=== PATIENT | female | born 1990 | race African-American/Black ===

== ENCOUNTER 2017-09-09 16:05 | Emergency (ER) | payer MEDICAID, OTHER ==
[~2017-09-09] VITALS: Ht 167.6 cm; Wt 81.6 kg
[~2017-09-09 16:05] MED LIST: ALBUTEROL SULF8.5 GM INH; IBUPROFEN600 MG ORAL; NKM; TRAMADOL HCL50 MG ORAL
[2017-09-09] MEDS ORDERED: Albuterol ud Inhalation HHN ONE (16:45)
--- NOTE | 2017-09-09 17:24 | Emergency Room Report ---
History of Present Illness General Chief Complaint: General Complaint Present Illness HPI 27-year-old female presents to the emergency department complaining of cough, body aches, nasal congestion and exacerbation of her asthma x3 days in addition to the swelling, erythema, tenderness to localized area of the right buttock with 10 out of 10 in severity pain x3 days as well. Patient reports chills she denies fevers. Denies recent no contacts or recent travel. Denies neck pain, stiffness or photophobia. Denies CP, Palpitations, LOC, AMS, dizziness, Changes in Vision, Sensation, paresthesias, or a sudden severe headache. Pt. states she has been out of her inhaler for "a long time". Allergies: Coded Allergies: No Known Allergies (Unverified , 02/23/16) Patient History Past Medical History: see triage record Past Surgical History: none Pertinent Family History: none Reviewed Nursing Documentation: PMH: Agreed, PSxH: Agreed Nursing Documentation-PMH Hx Asthma: Yes Review of Systems All Other Systems: negative except mentioned in HPI Physical Exam Vital Signs Date Time Temp Pulse Resp B/P (MAP) Pulse Ox O2 Delivery O2 Flow Rate FiO2 09/09/17 16:13 97.9 94 20 110/76 99 Room Air 09/09/17 17:13 21 Sp02 EP Interpretation: reviewed, normal General Appearance: no apparent distress, alert, GCS 15, non-toxic Head: normocephalic, atraumatic Eyes: bilateral eye normal inspection, bilateral eye PERRL ENT: hearing grossly normal, normal pharynx, normal voice, TMs + canals normal , uvula midline, moist mucus membranes Neck: full range of motion, no meningismus, no bony tend Respiratory: chest non-tender, speaking full sentences, wheezing Cardiovascular #1: regular rate, rhythm, normal capillary refill Rectal: deferred Musculoskeletal: back normal, gait/station normal, normal range of motion, non- tender Neurologic: alert, oriented x3, responsive, motor strength/tone normal, sensory intact, normal gait, speech normal Skin: normal color, no rash, warm/dry, well hydrated, other - 2cm fluctuant abscess on the medial aspect of the right buttock. Procedures Incision and Drainage Incision and Drainage : Consent: Verbal Site: right buttock Blade Size: 11 I & D Procedure: betadine prep, sterile drapes applied, sterile dressing applied Wound Location: other - right buttock Wound's Depth, Shape: superficial Wound Length (cm): 1 Wound Explored: contaminated - purulent drainage is expressed Anesthesia: 1% Lidocaine Volume Anesthetic (ccs): 2 Splint Applied?: No Sling Applied?: No Patient Tolerated: Well Complications: None Medical Decision Making PA Attestation Dr. Orellana is my supervising Physician whom patient management has been discussed with. Diagnostic Impression: Primary Impression: Abscess Additional Impression: Bronchitis ER Course 27-year-old female presents to the emergency department complaining of cough, body aches, nasal congestion and exacerbation of her asthma x3 days in addition to the swelling, erythema, tenderness to localized area of the right buttock with 10 out of 10 in severity pain x3 days as well. Patient reports chills she denies fevers. Denies recent no contacts or recent travel. Denies neck pain, stiffness or photophobia. Denies CP, Palpitations, LOC, AMS, dizziness, Changes in Vision, Sensation, paresthesias, or a sudden severe headache. Pt. states she has been out of her inhaler for "a long time". Ddx considered but are not limited to URI, pneumonia, PE, strep pharyngitis, meningitis.cellulitis, abscess, cystic acne, necrotizing fasciitis, insect bite. Vital signs: Pt.is afebrile VS are WNL H&PE are most consistent with bronchitis and abscess of the right buttock. ORDERS: none required at this time, the diagnosis is clinical ED INTERVENTIONS: -Albuterol Nebs --I & D. DISCHARGE: At this time pt. is stable for d/c to home. Will provide printed patient care instructions, and any necessary prescriptions. Care plan and follow up instructions have been discussed with the patient prior to discharge. Last Vital Signs Date Time Temp Pulse Resp B/P (MAP) Pulse Ox O2 Delivery O2 Flow Rate FiO2 09/09/17 17:15 77 18 99 Room Air 21 09/09/17 16:13 97.9 110/76 Disposition: HOME, SELF-CARE Condition: Stable Scripts Codeine/Promethazine Hcl* (PROMETHAZINE-CODEINE SYRUP*) 118 Ml Syrup 5 ML ORAL Q6H Y for For Cough, #120 ML 0 Refills Prov: Mindi Hathaway P.A. 09/09/17 Albuterol Sulfate* (ALBUTEROL SULFATE MDI*) 8.5 Gm Hfa.aer.ad 2 PUFF INH Q3H, #1 INH 0 Refills Prov: Mindi Hathaway 09/09/17 Bacitracin/Polymyxin B Sulfate (BACITRACIN-POLYMYXIN OINTMENT) 28.35 Gm Oint...g. 1 APPLIC TP BID, #28.3 GM Prov: Mindi Hathaway 09/09/17 Trimethoprim/Sulfamethoxazole 160/800* (BACTRIM DS TABLET*) 1 Each Tablet 1 TAB ORAL TWICE A DAY for 7 Days, #14 TAB Prov: Mindi Hathaway 09/09/17 Cephalexin* (KEFLEX*) 500 Mg Capsule 500 MG ORAL EVERY 12 HOURS for 7 Days, #14 CAP 0 Refills Prov: Mindi Hathaway 09/09/17 Patient Instructions: Abscess, [id number], Acute Bronchitis, [id number] Additional Instructions: Take medications as directed. Follow up with a Primary Care Provider in 3-5 days, even if your symptoms have resolved. --Please review list of primary care clinics, if you do not already have a primary care provider Return sooner to ED if new symptoms occur, or current symptoms become worse. Do not drink alcohol, drive, or operate heavy machinery while taking Cough Syrup as this may cause drowsiness. - Please note that this Emergency Department Report was dictated using [employer] caller technology software, occasionally this can lead to erroneous entry secondary to interpretation by the dictation equipment. Mindi Hathaway Sep 09, 2017 17:24
[2017-09-09] MEDS ORDERED: CEPHALEXIN500 MG ORAL (17:25)
[2017-09-09] MEDS ORDERED: PROMETHAZINE-C118 M1 ORAL (17:25)
[2017-09-09] MEDS ORDERED: ALBUTEROL SULF8.5 GM INH (17:25)
[2017-09-09] MEDS ORDERED: BACTRIM DS TAB1 EAC1 ORAL (17:25)
[2017-09-09] MEDS ORDERED: BACITRACIN-P28.35 GM TP (17:25)
[2017-09-09 17:40] VITALS: BP 124/70
== END 2017-09-09 18:00 | disposition home or self-care (01) ==
LOC: EMR 17:50
DX: L02.31 Cutaneous abscess of buttock (principal); J40 Bronchitis, not specified as acute or chronic; R09.81 Nasal congestion; J45.901 Unspecified asthma with (acute) exacerbation
CPT/HCPCS: 10060; 94640; 94664; 99284

== ENCOUNTER 2017-10-07 07:41 | Emergency (ER) | payer MEDICAID, OTHER ==
[~2017-10-07] VITALS: Ht 167.6 cm; Wt 80.7 kg
[~2017-10-07 07:41] MED LIST changes: +BACITRACIN-P28.35 GM TP; +BACTRIM DS TAB1 EAC1 ORAL; +CEPHALEXIN500 MG ORAL; +PROMETHAZINE-C118 M1 ORAL
[2017-10-07] MEDS ORDERED: Albuterol ud Inhalation HHN ONE (08:00)
[2017-10-07] MEDS ORDERED: Ipratropium 0.02% Inh Soln 2.5ml UD HHN ONE (08:00)
--- NOTE | 2017-10-07 08:00 | Emergency Room Report ---
History of Present Illness General Chief Complaint: Asthma Source: Patient Present Illness HPI 27-year-old female presents ED for evaluation. Since last 2 days she's been drinking chest tightness and wheezing. Has history of asthma. Denies any chest pain. Denies any cough. Denies smoking or drug use. Denies sick contacts or recent travel. No other aggravating relieving factors. Denies any other associated symptom Allergies: Coded Allergies: No Known Allergies (Unverified , 02/23/16) Patient History Past Medical History: asthma Past Surgical History: none Pertinent Family History: none Social History: Denies: smoking, alcohol use, drug use Last Menstrual Period: 10/03/17 Now: No Immunizations: UTD Reviewed Nursing Documentation: PMH: Agreed, PSxH: Agreed Nursing Documentation-PMH Past Medical History: No History, Except For Hx Asthma: Yes Review of Systems All Other Systems: negative except mentioned in HPI Physical Exam Vital Signs Date Time Temp Pulse Resp B/P (MAP) Pulse Ox O2 Delivery O2 Flow Rate FiO2 10/07/17 07:43 97.7 88 20 114/64 100 Room Air Sp02 EP Interpretation: reviewed, normal General Appearance: no apparent distress, alert, GCS 15, non-toxic Head: normocephalic Eyes: bilateral eye normal inspection, bilateral eye PERRL ENT: hearing grossly normal, normal pharynx, no angioedema, normal voice Neck: normal inspection Respiratory: wheezing Cardiovascular #1: regular rate, rhythm, no edema Gastrointestinal: normal bowel sounds, non tender, soft, non-distended, no guarding, no rebound Rectal: deferred Genitourinary: no CVA tenderness Musculoskeletal: normal inspection Neurologic: alert, oriented x3, responsive, motor strength/tone normal, sensory intact, speech normal Psychiatric: normal inspection Skin: normal inspection Lymphatic: normal inspection Medical Decision Making Diagnostic Impression: Primary Impression: Asthma attack Qualified Codes: J45.901 - Unspecified asthma with (acute) exacerbation ER Course Hospital Course 27-year-old female presents to ED complaining of cough, wheezing Differential diagnoses include: URI, bronchitis, asthma/COPD, pneumonia Clinical course Patient placed on stretcher. After initial history, physical exam reveals a female in no acute distress. Bilateral TM unremarkable. No pharyngeal erythema. No tonsillar exudates. No lymphadenopathy. Mild wheezing noted on exam, no signs of respiratory distress or retractions. Patient given Prednisone and albuterol treatment in ED with symptoms improved. Reassurance given Diagnosis - asthma attack Stable and discharged home with prescriptions for albuterol inhaler, prednisone. Instructed to followup with PMD. Return to ED if symptoms recur or worsen Last Vital Signs Date Time Temp Pulse Resp B/P (MAP) Pulse Ox O2 Delivery O2 Flow Rate FiO2 10/07/17 07:43 97.7 88 20 114/64 100 Room Air Status: improved Disposition: HOME, SELF-CARE Condition: Stable Scripts Prednisone* (PREDNISONE*) 20 Mg Tablet 40 MG ORAL DAILY, #10 TAB Prov: LEISA BARRIOS M.D. 10/07/17 Albuterol Sulfate* (ALBUTEROL SULFATE MDI*) 8.5 Gm Hfa.aer.ad 2 PUFF INH Q6H, #1 EA 0 Refills Prov: LEISA BARRIOS M.D. 10/07/17 LEISA BARRIOS M.D. Oct 07, 2017 08:00
[2017-10-07] MEDS ORDERED: PREDNISONE20 MG ORAL (08:58)
[2017-10-07] MEDS ORDERED: ALBUTEROL SULF8.5 GM INH (08:58)
[2017-10-07 08:59] VITALS: BP 114/64
== END 2017-10-07 08:59 | disposition home or self-care (01) ==
LOC: EMR 08:06
DX: J45.909 Unspecified asthma, uncomplicated (principal)
CPT/HCPCS: 94640; 94664; 99284; J7512

== ENCOUNTER 2017-11-01 18:41 | Emergency (ER) | payer MEDICAID ==
[~2017-11-01] VITALS: Ht 167.6 cm; Wt 81.6 kg
[~2017-11-01 18:41] MED LIST changes: +PREDNISONE20 MG ORAL
--- NOTE | 2017-11-01 18:59 | Emergency Room Report ---
History of Present Illness General Chief Complaint: General Complaint Source: Patient Present Illness HPI 27 yo female patient presents to ER complaining of cough, congestion and flu like symptoms for 3 days. Patient reports cough with sputum and subjective fever. Patient reports hx of asthma; states cough is worse at night. Patient reports she is out of medication; states appointment with primary care provider is next month on November 12, 2017. Patient reports chest pain began after coughing symptoms. Patient also complains of diarrhea x1 day; reports its watery.. Reports drinking lots of fluids during this time; denies lack of appetite. Patient denies recent travel. Denies blood in stool. Patient presents to ER with daughter for similar symptoms. Patient denies nausea, vomiting, vision changes, abdominal pain, dysuria, hematuria, rash. Allergies: Coded Allergies: No Known Allergies (Unverified , 02/23/16) Patient History Past Medical History: see triage record Last Menstrual Period: 10/04/17 Reviewed Nursing Documentation: PMH: Agreed, PSxH: Agreed Nursing Documentation-PMH Past Medical History: No History, Except For Hx Asthma: Yes Review of Systems All Other Systems: negative except mentioned in HPI Physical Exam Vital Signs Date Time Temp Pulse Resp B/P (MAP) Pulse Ox O2 Delivery O2 Flow Rate FiO2 11/01/17 18:54 99.1 92 18 110/72 96 Room Air 99.1 Sp02 EP Interpretation: reviewed, normal General Appearance: well appearing, no apparent distress, alert, GCS 15, non- toxic Head: normocephalic, atraumatic Eyes: bilateral eye normal inspection, bilateral eye PERRL, bilateral eye EOMI ENT: hearing grossly normal, normal pharynx, normal voice, TMs + canals normal , uvula midline, moist mucus membranes, nasal congestion Respiratory: no accessory muscle use, speaking full sentences, wheezing, other - chest tender to palpation; no crackles on auscultation Cardiovascular #1: regular rate, rhythm Gastrointestinal: normal bowel sounds, non tender, soft, no mass, non-distended , no guarding, no rebound Genitourinary: no CVA tenderness Musculoskeletal: back normal, digits/nails normal, gait/station normal, normal range of motion Neurologic: alert, oriented x3, responsive, motor strength/tone normal, normal gait Psychiatric: mood/affect normal Skin: no rash Lymphatic: no adenopathy Medical Decision Making PA Attestation Dr. Camacho is my supervising Physician whom patient management has been discussed with. Diagnostic Impression: Primary Impression: Asthma attack Additional Impression: Diarrhea ER Course Pt presents to ED c/o asthma symptoms. DDX considered but are not limited to asthma, viral URI, influenza, bronchitis, gastritis, enteritis, viral syndrome. On PE, chest is TTP; chest pain likely musculoskeletal in nature secondary to cough, lack of cardiac risk factors; patient does not require cardiac workup at this time. Patient instructed to take NSAIDs at home as needed for pain symptoms. VITAL SIGNS are WNL, patient is afebrile. Ordered breathing treatment, prednisone, and pain medication. ER COURSE Patient provided with prednisone. Albuterol/Atrovent breathing treatment provided. Following treatment patient states no longer having difficulty with breathing. Lungs clear to auscultation, no wheezing. Patient is resting comfortably in no acute distress. DISCHARGE: -Rx given for Prednisone. -Rx provided for Albuterol MDI. Informed patient that she does not required treatment for diarrhea at this time. No blood in diarrhea or recent travel; patient does not require antibiotics. Instructed patient to stay hydrated with fluids to prevent dehydration secondary to diarrhea. Instructed patient to followup with primary care provider. At this time pt is stable for d/c to home. Patient is resting comfortably in no acute distress, nontoxic appearing, able to answer questions without difficulty. Patient to take medications as instructed Will provide with patient care instructions and any necessary prescriptions. Care plan and follow-up instructions provided. Patient instructed to follow-up with primary care provider. Patient questions asked and answered. Patient reports understanding and agreement to treatment plan. ER precautions given. Patient instructed to return to ER immediately for any new or worsening of symptoms including but not limited to increasing SOB, persistent fever. Last Vital Signs Date Time Temp Pulse Resp B/P (MAP) Pulse Ox O2 Delivery O2 Flow Rate FiO2 11/01/17 18:54 99.1 92 18 110/72 96 Room Air 99.1 Disposition: HOME, SELF-CARE Condition: Stable Scripts Prednisone* (PREDNISONE*) 20 Mg Tablet 40 MG ORAL DAILY for 5 Days, #10 TAB Prov: Aidan Damon P.A. 11/01/17 Albuterol Sulfate* (ALBUTEROL SULFATE MDI*) 8.5 Gm Hfa.aer.ad 2 PUFF INH Q6H, #1 INH 0 Refills Prov: Aidan Damon 11/01/17 Patient Instructions: Asthma, Adult, [id number], Diarrhea, Adult, Easy-to- Read Additional Instructions: Followup with primary care provider in 3 -5 days. Take medications as directed. Patient questions asked and answered. ER precautions given, patient instructed to return to ER immediately for any new or worsening of symptoms. Aidan Damon Nov 01, 2017 18:59
[2017-11-01] MEDS ORDERED: Acetaminophen 500mg (ES) tab ORAL ONE (19:15)
[2017-11-01] MEDS ORDERED: Albuterol/Ipratropium 3ml neb HHN ONE (19:15)
[2017-11-01] MEDS ORDERED: PREDNISONE20 MG ORAL (19:27)
[2017-11-01] MEDS ORDERED: ALBUTEROL SULF8.5 GM INH (19:27)
[2017-11-01 20:05] VITALS: BP 124/78
[2017-11-01 20:06] VITALS: BP 110/72
== END 2017-11-01 20:06 | disposition home or self-care (01) ==
LOC: EMR 19:25
DX: J45.909 Unspecified asthma, uncomplicated (principal); R19.7 Diarrhea, unspecified
CPT/HCPCS: 94640; 94664; 99284; J7512; J7620

== ENCOUNTER 2018-01-14 17:39 | Emergency (ER) | payer MEDICAID ==
[~2018-01-14] VITALS: Ht 170.2 cm; Wt 78.5 kg
[2018-01-14 18:35] VITALS: BP 115/81
--- NOTE | 2018-01-14 18:42 | Emergency Room Report ---
History of Present Illness General Chief Complaint: Abdominal Pain Source: Patient Present Illness HPI 27-year-old female patient presents ER complaining of breathing difficulty and abdominal pain. Patient reports abdominal pain began today. Patient reports generalized abdominal pain. Patient also complains of diarrhea during this time , watery, no blood, no recent travel or Similar symptoms. Patient denies dysuria hematuria. Patient denies . Patient denies vomiting. patient denies history of abdominal surgery. Patient also complains of breathing difficulty. Patient reports history of bronchitis. Patient reports used breathing treatment at home earlier today without relief of symptoms. Patient requesting breathing treatment and cough medication. Patient reports no neck or calf pain. Patient denies recent surgery or history of cancer. Patient denies history of IV drug abuse. reports LMP 23 of December, was normal for her. Denies dysuria, hematuria, vaginal bleeding. Denies vaginal discharge.patient requesting refill of asthma medication. Allergies: Coded Allergies: No Known Allergies (Unverified , 02/23/16) Patient History Past Medical History: see triage record Last Menstrual Period: 12/24/2017 Now: No Reviewed Nursing Documentation: PMH: Agreed; PSxH: Agreed Nursing Documentation-PMH Past Medical History: No History, Except For Hx Asthma: Yes Review of Systems All Other Systems: negative except mentioned in HPI Physical Exam Vital Signs Date Time Temp Pulse Resp B/P (MAP) Pulse Ox O2 Delivery O2 Flow Rate FiO2 01/14/18 18:08 98.7 84 16 115/81 96 Room Air 98.8 Sp02 EP Interpretation: reviewed, normal General Appearance: well appearing, no apparent distress, alert, GCS 15, non- toxic Head: normocephalic, atraumatic Eyes: bilateral eye normal inspection, bilateral eye PERRL ENT: hearing grossly normal, normal pharynx, no angioedema, normal voice, uvula midline, moist mucus membranes Neck: full range of motion Respiratory: no rhonchi, no respiratory distress, no accessory muscle use, speaking full sentences, wheezing Cardiovascular #1: regular rate, rhythm, no edema Gastrointestinal: soft, no mass, non-distended, other - positive Santiago sign, negative Rovsing, negative heel tap Genitourinary: no CVA tenderness Musculoskeletal: back normal, digits/nails normal, gait/station normal, normal range of motion, non-tender, no calf tenderness, Chidi's Sign negative Neurologic: alert, oriented x3, responsive, motor strength/tone normal, sensory intact Psychiatric: mood/affect normal Skin: no rash Medical Decision Making PA Attestation Dr. Orellana is my supervising Physician whom patient management has been discussed with. Diagnostic Impression: Primary Impression: Diarrhea Additional Impressions: Wheezing Abdominal pain ER Course Pt. presents to the ED c/o abdominal pain, diarrhea, and breathing difficulty. Ddx considered but are not limited to UTI, cholelithiasis, cholecystitis, pancreatitis. Low suspicion for appendicitis, negative Rovsing, negative TTP of LLQ. DDX considered but are not limited to asthma, viral URI, influenza, bronchitis, pneumonia. Begin abdominal pain workup. Provided patient with pain medication. Vital signs: are WNL, pt. is afebrile ORDERS: CBC, CMP, Lipase, UA, Urine , US, Zofran. ER COURSE: Provided with breathing treatment. Consult RT, recommended second breathing treatment due to continued wheezing. Ordered second breathing treatment and dexamethasone. Following second treatment patient states no longer having difficulty with breathing, moving air better, intermittent wheezing. Patient is resting comfortably in no acute distress. Will provide medications for wheezing symptoms. Instructed patient to followup with primary care provider and discuss referral to pulmonology. Needs workup for asthma due to continued symptoms and repeated visits to ER for similar symptoms. Discuss need for steroid inhaler and other medications at that time. Requesting asthma medications. Request codeine cough syrup, reports only cough medication that works. Reviewed CURES, negative for recent Rx prescriptions. CBC unremarkable CMP no elevation in LFTs or Lipase Reviewed labs with Dr. Orellana. CXR negative for acute disease. Informed patient of results. Patient reports relief of pain symptoms following administration of medication. Patient reports feels better and ready to go home, decline US or imaging at this time. Consult Dr. Orellana, reviewed labs, OK for discharge and outpatient followup. Followup with PCP, discuss outpatient imaging. Take Tylenol for pain. DISCHARGE: -Rx given for Prednisone. -Rx provided for Albuterol MDI. -Rx provided for Promethazine with codeine. -Rx provided for Tylenol At this time pt. is stable for d/c to home. Patient resting comfortably, in no acute distress, nontoxic appearing, talking without difficulty. Rx provided to patient. Patient to take medications as instructed Will provide with patient care instructions and any necessary prescriptions. Care plan and follow-up instructions provided. Patient instructed to follow-up with primary care provider in 3 - 5 days. Patient questions asked and answered. Patient reports understanding and agreement to treatment plan. ER precautions given. Patient instructed to return to ER immediately for any new or worsening of symptoms including but not limited to increasing SOB, persistent fever, worsening of pain symptoms, intractable vomiting, blood in stool, urine, and/or emesis. - Please note that this Emergency Department Report was dictated using [employer]bjacks[employer] worker technology software, occasionally this can lead to erroneous entry secondary to interpretation by the dictation equipment. Labs Test 01/14/18 18:26 01/14/18 18:50 Urine Color Pale yellow Urine Appearance Clear Urine pH 7.0 (4.5-8.0) Urine Specific [place] 1.010 (1.005-1.035) Urine Protein Negative (NEGATIVE) Urine Glucose (UA) Negative (NEGATIVE) Urine Ketones Negative (NEGATIVE) Urine Occult Blood Negative (NEGATIVE) Urine Nitrite Negative (NEGATIVE) Urine Bilirubin Negative (NEGATIVE) Urine Urobilinogen Normal MG/DL (0.0-1.0) Urine Leukocyte Esterase Negative (NEGATIVE) Urine HCG, Qualitative Negative (NEGATIVE) White Blood Count 4.6 K/UL (4.8-10.8) Red Blood Count 4.12 M/UL (4.20-5.40) Hemoglobin 9.9 G/DL (12.0-16.0) Hematocrit 31.6 % (37.0-47.0) Mean Corpuscular Volume 77 FL (80-99) Mean Corpuscular Hemoglobin 24.0 PG (27.0-31.0) Mean Corpuscular Hemoglobin Concent 31.3 G/DL (32.0-36.0) Red Cell Distribution Width 14.8 % (11.6-14.8) Platelet Count 205 K/UL (150-450) Mean Platelet Volume 6.5 FL (6.5-10.1) Neutrophils (%) (Auto) 40.3 % (45.0-75.0) Lymphocytes (%) (Auto) 42.5 % (20.0-45.0) Monocytes (%) (Auto) 10.8 % (1.0-10.0) Eosinophils (%) (Auto) 4.7 % (0.0-3.0) Basophils (%) (Auto) 1.7 % (0.0-2.0) Sodium Level 141 MMOL/L (136-145) Potassium Level 3.8 MMOL/L (3.5-5.1) Chloride Level 108 MMOL/L (98-107) Carbon Dioxide Level 22 MMOL/L (21-32) Anion Gap 11 mmol/L (5-15) Blood Urea Nitrogen 11 mg/dL (7-18) Creatinine 0.8 MG/DL (0.55-1.30) Estimat Glomerular Filtration Rate > 60 mL/min (>60) Glucose Level 81 MG/DL (74-106) Calcium Level 8.5 MG/DL (8.5-10.1) Total Bilirubin 0.5 MG/DL (0.2-1.0) Aspartate Amino Transf (AST/SGOT) 25 U/L (15-37) Alanine Aminotransferase (ALT/SGPT) 21 U/L (12-78) Alkaline Phosphatase 56 U/L (46-116) Total Protein 7.1 G/DL (6.4-8.2) Albumin 3.6 G/DL (3.4-5.0) Globulin 3.5 g/dL Albumin/Globulin Ratio 1.0 (1.0-2.7) Lipase 110 U/L (73-393) Human Chorionic Gonadotropin, Quant < 1 mIU/mL (1-6) Chest X-Ray Diagnostic Results Chest X-Ray Diagnostic Results : Chest X-Ray Ordered: Yes # of Views/Limited/Complete: 1 View Indication: Other - cough EP Interpretation: Yes PA Xray: Interpretation reviewed, by supervising MD, and agrees with findings. Interpretation: no consolidation, no effusion, no pneumothorax Impression: No acute disease PA Scribe Text Kal Damon PA-C Last Vital Signs Date Time Temp Pulse Resp B/P (MAP) Pulse Ox O2 Delivery O2 Flow Rate FiO2 01/14/18 18:08 98.7 84 16 115/81 96 Room Air 98.8 Status: improved Disposition: HOME, SELF-CARE Condition: Stable Scripts Prednisone* (PREDNISONE*) 20 Mg Tablet 20 MG ORAL DAILY for 4 Days, #8 TAB 0 Refills Prov: Aidan Damon P.A. 01/14/18 Albuterol Sulfate* (ALBUTEROL SULFATE MDI*) 8.5 Gm Hfa.aer.ad 2 PUFF INH Q6H, #1 INH 0 Refills Prov: Aidan Damon 01/14/18 Acetaminophen* (TYLENOL EXTRA STRENGTH*) 500 Mg Tablet 500 MG ORAL Q8H PRN for Prn Headache/Temp > 101, #30 TAB 0 Refills Prov: Aidan Damon 01/14/18 Codeine/Promethazine Hcl* (PROMETHAZINE-CODEINE SYRUP*) 118 Ml Syrup 5 ML ORAL Q6H PRN for For Cough, #100 ML 0 Refills Prov: Aidan Damon. 01/14/18 Patient Instructions: Asthma, Adult, [id number], Diarrhea, Adult, Easy-to- Read, Abdominal Pain, Adult Additional Instructions: Followup with primary care provider in 3 -5 days. Discuss referral to pulmonology for workup for asthma. Discuss medication use. Avoid spicy foods, avoid dairy foods. BRAT diet: bananas, rice, apple sauce, toast. Take medications as directed. Patient questions asked and answered. ER precautions given, patient instructed to return to ER immediately for any new or worsening of symptoms. Aidan Damon January 14, 2018 18:42
[2018-01-14] MEDS ORDERED: Albuterol/Ipratropium 3ml neb HHN ONE ×2 (18:45→19:30)
[2018-01-14] MEDS ORDERED: Dicyclomine HCl 10mg/5ml oral soln ORAL ONE ×2 (18:45→20:15)
[2018-01-14] MEDS ORDERED: Morphine Sulfate 4mg/ml Inj IVP ONE (18:45)
[2018-01-14 19:06] LABS: APPEARANCE,URINE CLEAR; BILIRUBIN, URINE NEGATIVE (NEGATIVE); COLOR,URINE PALE YELLOW; GLUCOSE, URINE (UA) NEGATIVE (NEGATIVE); KETONES,URINE NEGATIVE (NEGATIVE); LEUKOCYTE ESTERASE ,URINE NEGATIVE (NEGATIVE); NITRITE,URINE NEGATIVE (NEGATIVE); PROTEIN,URINE NEGATIVE (NEGATIVE); UROBILINOGEN,URINE NORMAL MG/DL (0.0-1.0)
[2018-01-14 19:10] LABS: BASOPHILS % (AUTO) 1.7 % (0.0-2.0); EOSINOPHILS % (AUTO) 4.7 % (0.0-3.0); HEMATOCRIT 31.6 % (37.0-47.0); HEMOGLOBIN 9.9 G/DL (12.0-16.0); LYMPHOCYTES % (AUTO) 42.5 % (20.0-45.0); MEAN CORPUSCULAR VOLUME 77 FL (80-99); MONOCYTES % (AUTO) 10.8 % (1.0-10.0); NEUTROPHILS % (AUTO) 40.3 % (45.0-75.0); PLATELET COUNT 205 K/UL (150-450); RED BLOOD COUNT 4.12 M/UL (4.20-5.40); RED CELL DISTRIBUTION WIDTH 14.8 % (11.6-14.8); WHITE BLOOD COUNT 4.6 K/UL (4.8-10.8)
[2018-01-14 19:24] LABS: ANION GAP 11 mmol/L (5-15); BLOOD UREA NITROGEN 11 mg/dL (7-18); CALCIUM 8.5 MG/DL (8.5-10.1); CARBON DIOXIDE 22 MMOL/L (21-32); CHLORIDE 108 MMOL/L (98-107); CREATININE 0.8 MG/DL (0.55-1.30); POTASSIUM 3.8 MMOL/L (3.5-5.1); SODIUM 141 MMOL/L (136-145)
[2018-01-14 19:30] VITALS: BP 121/78
[2018-01-14] MEDS ORDERED: Dexamethasone 4mg/ml vial IM ONE (19:30)
[2018-01-14 19:35] LABS: ALANINE AMINOTRANSFERASE 21 U/L (12-78); ALBUMIN 3.6 G/DL (3.4-5.0); ALKALINE PHOSPHATASE 56 U/L (46-116); ASPARTATE AMINO TRANSFERASE 25 U/L (15-37); BILIRUBIN,TOTAL 0.5 MG/DL (0.2-1.0)
[2018-01-14] MEDS ORDERED: Mylanta II UD 30ml ORAL ONE (20:15)
[2018-01-14] MEDS ORDERED: Lidocaine 2% Visc 15ml soln ORAL ONE (20:15)
[2018-01-14 20:30] VITALS: BP 117/78
[2018-01-14] MEDS ORDERED: TYLENOL EXTRA500 MG ORAL (20:50)
[2018-01-14] MEDS ORDERED: ALBUTEROL SULF8.5 GM INH (20:50)
[2018-01-14] MEDS ORDERED: PROMETHAZINE-C118 M1 ORAL (20:50)
[2018-01-14] MEDS ORDERED: PREDNISONE20 MG ORAL (20:50)
[2018-01-14 21:00] VITALS: BP 121/78
== END 2018-01-14 21:00 | disposition home or self-care (01) ==
LOC: EMR 18:50
DX: R19.7 Diarrhea, unspecified (principal); R10.9 Unspecified abdominal pain; R06.2 Wheezing; J45.909 Unspecified asthma, uncomplicated; R05 Cough
CPT/HCPCS: 36415; 71045; 80053; 81003; 81025; 83690; 84702; 85025; 94640; 96372; 96374; 96375; 99284; J1100; J2270; J2405; J7620

== ENCOUNTER 2018-06-29 10:33 | Emergency (ER) | payer MEDICAID ==
[~2018-06-29] VITALS: Ht 167.6 cm; Wt 78.5 kg
[~2018-06-29 10:33] MED LIST changes: +TYLENOL EXTRA500 MG ORAL
[2018-06-29 10:41] VITALS: BP 126/86
[2018-06-29] MEDS ORDERED: Albuterol ud Inhalation HHN ONE (11:15)
[2018-06-29] MEDS ORDERED: Ipratropium 0.02% Inh Soln 2.5ml UD HHN ONE (11:15)
--- NOTE | 2018-06-29 11:22 | Emergency Room Report ---
History of Present Illness General Chief Complaint: Flu Like Symptoms Source: Patient, Medical Record Present Illness HPI Patient presents with complaints of cough and congestion bodyaches Runny nose she feels that her asthma has also flared up Symptoms ongoing for the past 7 days Denies any vomiting denies any diarrhea Denies any rash denies any chest pain Denies any recent travel Allergies: Coded Allergies: No Known Allergies (Unverified , 02/23/16) Patient History Past Medical History: see triage record Pertinent Family History: none Last Menstrual Period: 06/04/18 Reviewed Nursing Documentation: PMH: Agreed; PSxH: Agreed Nursing Documentation-PMH Past Medical History: No History, Except For Hx Asthma: Yes Review of Systems All Other Systems: negative except mentioned in HPI Physical Exam Vital Signs Date Time Temp Pulse Resp B/P (MAP) Pulse Ox O2 Delivery O2 Flow Rate FiO2 06/29/18 10:36 98.9 78 18 126/86 97 Room Air 99.0 Sp02 EP Interpretation: reviewed, normal General Appearance: well appearing, no apparent distress Head: normocephalic, atraumatic Eyes: bilateral eye PERRL, bilateral eye EOMI ENT: hearing grossly normal, normal pharynx, TMs + canals normal, uvula midline Neck: full range of motion, supple, no meningismus, no bony tend Respiratory: no respiratory distress, no retraction, no accessory muscle use, wheezing - Bilaterally Cardiovascular #1: normal peripheral pulses, regular rate, rhythm, no edema, no gallop, no JVD, no murmur Gastrointestinal: normal bowel sounds, non tender, soft, no mass, no organomegaly, non-distended, no guarding, no hernia, no pulsatile mass, no rebound Genitourinary: no CVA tenderness Musculoskeletal: normal inspection Neurologic: oriented x3, responsive, finishing area supervisor III-XII nml as tested, motor strength/ tone normal, sensory intact Psychiatric: mood/affect normal Skin: normal color, no rash, warm/dry, palpation normal Lymphatic: normal inspection, no adenopathy Medical Decision Making Diagnostic Impression: Primary Impression: Influenza-like symptoms Additional Impression: Asthma attack ER Course Multiple differentials including but not limited to asthma exacerbation URI, pneumonia considered Patient is saturating well respirations are appropriate has done significantly better after acute intervention I did not feel emergency imaging was required at this time symptoms are also more consistent with viral symptoms and patient will have initial conservative outpatient trial , Last Vital Signs Date Time Temp Pulse Resp B/P (MAP) Pulse Ox O2 Delivery O2 Flow Rate FiO2 06/29/18 10:41 99.0 78 18 126/86 97 Room Air 99.0 Status: improved Disposition: HOME, SELF-CARE Condition: Improved Scripts Dextromethorphan Hb/Doxylamine (ROBITUSSIN NIGHTTIME COUGH DM) 237 Ml Liquid 10 ML PO QHS for 5 Days, ML Prov: Jeffery Orellana DO 06/29/18 Albuterol Sulfate* (ALBUTEROL SULFATE MDI*) 8.5 Gm Hfa.aer.ad 2 PUFF INH Q4H PRN for cough/wheezing, #1 EA 0 Refills Prov: Jeffery Orellana DO 06/29/18 Prednisone* (PREDNISONE*) 20 Mg Tablet 20 MG ORAL BID, #6 TAB Prov: Jeffery Orellana DO 06/29/18 [facility]errals[facility] ([facility]P) Additional Instructions: Patient is provided with the discharge instructions notified to follow up with primary doctor in the next 2-3 days otherwise return to the er with any worsening symptoms. Please note that this report is being documented using [employer] technology. This can lead to erroneous entry secondary to incorrect interpretation by the dictating instrument. Jeffery Orellana DO Jun 29, 2018 11:22
[2018-06-29] MEDS ORDERED: PREDNISONE20 MG ORAL (12:26)
[2018-06-29] MEDS ORDERED: ALBUTEROL SULF8.5 GM INH (12:26)
[2018-06-29] MEDS ORDERED: ROBITUSSIN NIG237 ML PO (12:27)
[2018-06-29 12:33] VITALS: BP 131/83
[2018-06-29 12:34] VITALS: BP 131/83
== END 2018-06-29 12:35 | disposition home or self-care (01) ==
LOC: EMR 10:50
DX: R05 Cough (principal); M79.10 Myalgia, unspecified site; R09.89 Other specified symptoms and signs involving the circulatory and respiratory systems; R09.81 Nasal congestion; J45.909 Unspecified asthma, uncomplicated
CPT/HCPCS: 94640; 94664; 99284; J7512

== ENCOUNTER 2018-10-20 20:26 | Emergency (ER) | payer MEDICAID ==
[~2018-10-20] VITALS: Ht 167.6 cm; Wt 78.9 kg
[~2018-10-20 20:26] MED LIST changes: +ROBITUSSIN NIG237 ML PO
[2018-10-20] MEDS ORDERED: Albuterol/Ipratropium 3ml neb HHN ONE (21:00)
[2018-10-20 21:13] VITALS: BP 118/64
[2018-10-20] MEDS ORDERED: PREDNISONE20 MG ORAL (21:22)
[2018-10-20] MEDS ORDERED: ALBUTEROL SULF8.5 GM INH (21:22)
[2018-10-20 21:37] VITALS: BP 124/67
--- NOTE | 2018-10-20 23:22 | Emergency Room Report ---
History of Present Illness General Chief Complaint: Asthma Source: Patient Present Illness HPI Patient is a 28-year-old female presented after increased difficulty breathing. Patient had prior history of asthma. She reports having worsening symptoms over the past 1 day. Patient reports having run out of her inhaler. Patient had prior history of asthma and has not recently been on steroids but has been on steroids in the past. She denies any fever. She denies any recent sick contacts. She denies any severe difficulty breathing at this time. Allergies: Coded Allergies: No Known Allergies (Unverified , 10/20/18) Patient History Past Medical History: see triage record Last Menstrual Period: 10/19/2017 Reviewed Nursing Documentation: PMH: Agreed; PSxH: Agreed Nursing Documentation-PMH Past Medical History: No History, Except For Hx Asthma: Yes Review of Systems All Other Systems: negative except mentioned in HPI Physical Exam Vital Signs Date Time Temp Pulse Resp B/P (MAP) Pulse Ox O2 Delivery O2 Flow Rate FiO2 10/20/18 20:27 98.2 113 22 119/81 96 10/20/18 21:01 Room Air 21 General Appearance: well appearing, no apparent distress, alert, GCS 15 Head: normocephalic, atraumatic ENT: hearing grossly normal, normal voice Neck: full range of motion, supple Respiratory: no respiratory distress, speaking full sentences, wheezing Cardiovascular #1: normal peripheral pulses, no edema, no JVD Gastrointestinal: normal inspection Musculoskeletal: normal inspection, no calf tenderness Neurologic: normal inspection, alert, oriented x3, sealer dry cell III-XII nml as tested, normal gait Psychiatric: mood/affect normal Skin: no rash Medical Decision Making Diagnostic Impression: Primary Impression: Asthma attack ER Course .Patient presented for cough and difficulty breathing. Differential diagnosis include was not limited to asthma, bronchitis, pneumonia, influenza among others. Patient has a benign exam and does not appear to require any further imaging or laboratory testing at this timePatient was noted to have prior history of asthma and states that she currently on her menses. Patient given breathing treatments as well as oral steroids. She was noted to have improvement in respiratory status. Patient states she felt better and wanted to go home. Patient was given prescription for oral steroids as well as albuterol. She is advised to recheck with a primary care physician in the next few days . Patient is advised to return if any worsening condition or if any changes in status that are concerning. This report is dictated with [employer] transcription coordinator software which may occasionally lead to discrepancies related to use of this software. Last Vital Signs Date Time Temp Pulse Resp B/P (MAP) Pulse Ox O2 Delivery O2 Flow Rate FiO2 10/20/18 21:37 98.2 97 18 124/67 100 Room Air 10/20/18 21:13 Status: improved Disposition: HOME, SELF-CARE Condition: Stable Scripts Prednisone* (PREDNISONE*) 20 Mg Tablet 40 MG ORAL DAILY, #10 TAB Prov: Dyllan Osman MD 10/20/18 Albuterol Sulfate* (ALBUTEROL SULFATE MDI*) 8.5 Gm Hfa.aer.ad 2 PUFF INH Q4H PRN for cough/wheezing, #1 EA 0 Refills Prov: Dyllan Osman MD 10/20/18 Referrals: [facility] ([facility]P) Patient Instructions: Asthma, Adult Dyllan Osman MD Oct 20, 2018 23:22
== END 2018-10-20 21:40 | disposition home or self-care (01) ==
LOC: EMR 20:44
DX: J45.909 Unspecified asthma, uncomplicated (principal)
CPT/HCPCS: 94640; 94664; 99283; J7512; J7620

== ENCOUNTER 2019-03-07 18:36 | Emergency (ER) | payer MEDICAID ==
[~2019-03-07] VITALS: Ht 167.6 cm; Wt 78.5 kg
--- NOTE | 2019-03-07 18:47 | NUR ---
ED Nurse Note: PT WALKED IN TO ER TODAY FROM HOME. AOX4. PT C/O COUGH, FEVER, SORE THROAT, HEADACHE, CHILLS AND DIARRHEA X LAST NIGHT. PT DENIES NAUSEA OR VOMITING. PT STATES SHE TOOK TYLENOL 325MG AT HOME TODAY. ORAL TEMP AT BEDSIDE: 98.4F.
[2019-03-07 18:48] VITALS: BP 116/74
--- NOTE | 2019-03-07 19:03 | NUR ---
ED Nurse Note: REPORT GIVEN TO DENA REYES.
--- NOTE | 2019-03-07 19:05 | Emergency Room Report ---
History of Present Illness General Chief Complaint: Flu Like Symptoms Source: Patient Present Illness HPI 28-year-old female with no segment past medical history other than asthma here complaining of 1 day of generalized body aches, one bout of nonbloody diarrhea, and one bout of nonbloody emesis. Also complaining of productive cough with yellow phlegm production and worsening of her wheezing due to asthma patient has been running out of her albuterol inhaler. Patient is here with her kennel manager dog track who is also being seen for similar symptoms. Reports minimal sore throat and congestion denies ear pain, fever and chills, chest pain, shortness of breath, palpitation, abdominal pain, recent travel, urinary symptoms. Has not been taking any medication for symptom relief. Allergies: Coded Allergies: No Known Allergies (Unverified , 10/20/18) Patient History Past Medical History: see triage record Past Surgical History: unable to obtain Pertinent Family History: none Last Menstrual Period: on period Now: No Reviewed Nursing Documentation: PMH: Agreed; PSxH: Agreed Nursing Documentation-PMH Past Medical History: No History, Except For Hx Asthma: Yes Review of Systems All Other Systems: negative except mentioned in HPI Physical Exam Vital Signs Date Time Temp Pulse Resp B/P (MAP) Pulse Ox O2 Delivery O2 Flow Rate FiO2 03/07/19 18:44 98.2 83 16 111/71 (84) 96 Room Air Sp02 EP Interpretation: reviewed, normal General Appearance: normal inspection, well appearing, no apparent distress Head: normocephalic, atraumatic Eyes: bilateral eye normal inspection, bilateral eye PERRL ENT: hearing grossly normal, normal pharynx, nasal congestion Neck: normal inspection, full range of motion, supple Respiratory: chest non-tender, lungs clear, no rhonchi, wheezing Cardiovascular #1: normal inspection, normal peripheral pulses, regular rate, rhythm, no edema, no murmur Gastrointestinal: normal inspection, non tender, soft Genitourinary: no CVA tenderness Musculoskeletal: normal inspection, back normal Neurologic: normal inspection, alert, oriented x3, responsive, appliance installer III-XII nml as tested Psychiatric: normal inspection, judgement/insight normal Skin: normal inspection, normal color, no rash, warm/dry Lymphatic: normal inspection, no adenopathy Medical Decision Making PA Attestation All diagnoses and treatment plans were reviewed and discussed with my supervising physician Dr. Moss Diagnostic Impression: Primary Impression: Viral gastroenteritis Additional Impressions: URI (upper respiratory infection) Asthma ER Course 28-year-old female with no segment past medical history other than asthma here complaining of 1 day of generalized body aches, one bout of nonbloody diarrhea, and one bout of nonbloody emesis. Also complaining of productive cough with yellow phlegm production and worsening of her wheezing due to asthma patient has been running out of her albuterol inhaler. Patient is here with her kennel manager dog track who is also being seen for similar symptoms. Reports minimal sore throat and congestion denies ear pain, fever and chills, chest pain, shortness of breath, palpitation, abdominal pain, recent travel, urinary symptoms. Has not been taking any medication for symptom relief. Ddx considered but are not limited to: strep pharyngitis, URI, tonsilitis, peritonsillar absacess, influneza Vital signs: are WNL, pt. is afebrile H&PE are most consistent with: Upper respiratory infection, asthma, viral gastroenteritis ORDERS: Zofran, Phenergan, Tamiflu per patient request ED INTERVENTIONS: None required at this time. DISCHARGE: At this time pt. is stable for d/c to home. Will provide printed patient care instructions, and any necessary prescriptions. Care plan and follow up instructions have been discussed with the patient prior to discharge. Return to the emergency room with worsening symptoms follow-up with a primary care provider rest and hydration advised Last Vital Signs Date Time Temp Pulse Resp B/P (MAP) Pulse Ox O2 Delivery O2 Flow Rate FiO2 03/07/19 18:48 98.4 82 18 116/74 98 Room Air Disposition: HOME, SELF-CARE Condition: Stable Scripts Albuterol Sulfate (VENTOLIN HFA) 18 Gm Hfa.aer.ad 2 PUFFS INH EVERY 6 HOURS, #18 GM 0 Refills Prov: Trev Lucio 03/07/19 Ondansetron (Zofran) 4 Mg Tablet 4 MG ORAL Q6H PRN for Nausea & Vomiting, #10 TAB Prov: Trev Lucio 03/07/19 Promethazine Hcl (PROMETHAZINE HCL*) 6.25 Mg/5 Ml Syrup 5 ML ORAL Q6H, #120 ML 0 Refills Prov: Trev Lucio 03/07/19 Oseltamivir Phosphate (Tamiflu) 75 Mg Capsule 75 MG ORAL TWICE A DAY for 5 Days, #10 CAP Prov: Trev Lucio 03/07/19 Patient Instructions: Asthma, Adult, [id number], Upper Respiratory Infection , Adult, [id number], Viral Gastroenteritis, Adult, [id number] Additional Instructions: Take medication as directed follow-up with your primary care provider Trev Lucio Mar 07, 2019 19:05
[2019-03-07] MEDS ORDERED: PROMETHAZI6.25 MG/1 ORAL (19:07)
[2019-03-07] MEDS ORDERED: ZOFRAN4 M1 ORAL (19:07)
[2019-03-07] MEDS ORDERED: TAMIFLU75 MG ORAL (19:07)
[2019-03-07] MEDS ORDERED: VENTOLIN HFA18 GM INH (19:10)
--- NOTE | 2019-03-07 19:17 | NUR ---
ER DISCHARGE NOTE: Patient is cleared to be discharged per ERMD, pt is aox4, on room air, with stable vital signs. pt was given dc and prescription instructions, pt was able to verbalize understanding, pt id band removed without complications. pt is able to ambulate with steady gait. pt took all belongings.
[2019-03-07 19:19] VITALS: BP 125/72
== END 2019-03-07 19:15 | disposition home or self-care (01) ==
LOC: EMR 19:05
DX: K52.9 Noninfective gastroenteritis and colitis, unspecified (principal); J06.9 Acute upper respiratory infection, unspecified; J45.909 Unspecified asthma, uncomplicated
CPT/HCPCS: 99282

== ENCOUNTER 2019-04-10 20:44 | Emergency (ER) | payer MEDICAID ==
[~2019-04-10] VITALS: Ht 167.6 cm; Wt 82.6 kg
[~2019-04-10 20:44] MED LIST changes: +PROMETHAZI6.25 MG/1 ORAL; +TAMIFLU75 MG ORAL; +VENTOLIN HFA18 GM INH; +ZOFRAN4 M1 ORAL
--- NOTE | 2019-04-10 20:52 | NUR ---
ED Nurse Note: pt walked in c/o cough x 2 days, pt reports she has hx asthma but denies sob, pt reports she ran out of inahler. LS=clear, no wheezing at this time, no sx resp distress, will cont monitor.
[2019-04-10 20:54] VITALS: BP 119/77
--- NOTE | 2019-04-10 21:06 | Emergency Room Report ---
History of Present Illness General Chief Complaint: Upper Respiratory Illness Source: Patient Present Illness HPI 28-year-old female history of asthma resents with shortness of breath, patient ran out of her inhaler 2 days prior to arrival, she endorses a cough, severity mild, worsened with smoking, alleviated with inhaler, no chest pain but she does endorse some shortness of breath, no nausea no vomiting no fever/chills patient presents for evaluation she states she only wants a refill. Allergies: Coded Allergies: No Known Allergies (Unverified , 10/20/18) Patient History Past Medical History: see triage record Last Menstrual Period: 04/03/19 : 3 Para: 3 Reviewed Nursing Documentation: PMH: Agreed; PSxH: Agreed Nursing Documentation-PMH Past Medical History: No History, Except For Hx Asthma: Yes Review of Systems All Other Systems: negative except mentioned in HPI Physical Exam Vital Signs Date Time Temp Pulse Resp B/P (MAP) Pulse Ox O2 Delivery O2 Flow Rate FiO2 04/10/19 20:45 98.1 84 18 119/77 (91) 97 Room Air Sp02 EP Interpretation: reviewed, normal General Appearance: well appearing, no apparent distress, alert Head: normocephalic, atraumatic Eyes: bilateral eye PERRL, bilateral eye EOMI ENT: uvula midline, moist mucus membranes Neck: supple, thyroid normal, supple/symm/no masses Respiratory: lungs clear, no respiratory distress, no retraction, no accessory muscle use Cardiovascular #1: normal peripheral pulses, regular rate, rhythm, no edema, no gallop, no murmur Gastrointestinal: non tender, soft, no guarding, no rebound Musculoskeletal: normal inspection Neurologic: alert, oriented x3 Psychiatric: mood/affect normal Skin: no rash, warm/dry Medical Decision Making Diagnostic Impression: Primary Impression: Asthma attack Additional Impression: Asthma ER Course She is complaining of asthma-like symptoms, only wants a refill of inhaler, respiratory exam unremarkable, will provide patient with an inhaler, disposition home with return precautions Last Vital Signs Date Time Temp Pulse Resp B/P (MAP) Pulse Ox O2 Delivery O2 Flow Rate FiO2 04/10/19 20:54 84 18 Room Air 04/10/19 20:54 98.1 119/77 97 Disposition: HOME, SELF-CARE Condition: Stable Referrals: [facility]P) [facility] Patient Instructions: Asthma Attack Prevention, Asthma, Adult, [id number] Additional Instructions: The patient was provided with discharge instructions, notified to follow-up with a primary care doctor and or specialist in the next 24-48 hours, and to return to the ED if they have worsening of their symptoms. Please note that this report is being documented using [employer] technology. This can lead to erroneous entry secondary to incorrect interpretation by the dictating instrument. Orlin Florence MD Apr 10, 2019 21:06
[2019-04-10] MEDS ORDERED: ALBUTEROL SULF8.5 GM INH (21:08)
[2019-04-10 21:23] VITALS: BP 119/77
--- NOTE | 2019-04-10 21:23 | NUR ---
ED Nurse Note: pt cleared to be d/c per ERMD, pt discharge and aftercare instruction provided w/ prescription, pt education done via discussion and handout, pt advised to follow up with pcp or return to ed if changes in condition, vss, ambulatory w/ steady gait, accompanied by partner, left w/ all belongings.
== END 2019-04-10 21:23 | disposition home or self-care (01) ==
LOC: EMR 21:00
DX: J45.901 Unspecified asthma with (acute) exacerbation (principal)
CPT/HCPCS: 99281

== ENCOUNTER 2020-04-02 03:02 | Emergency (ER) | payer MEDICAID ==
[~2020-04-02] VITALS: Ht 167.6 cm; Wt 86.2 kg
[~2020-04-02 03:02] MED LIST changes: +OMEPRAZOLE20 M3 ORAL
[2020-04-02] MEDS ORDERED: Lidocaine 1% Plain 30 ml INJ ONE (03:19)
[2020-04-02 03:20] VITALS: BP 113/80
--- NOTE | 2020-04-02 03:20 | NUR ---
ED Nurse Note: Pt walked into ED from home for c/o severe pain to inner R thigh x 2 days. Pt states she is unable to move leg and it is hard to walk. Abscess and swelling noted to inner R thigh. Pt is aaox4, breathing is normal and unlabored. No other complaints at this time. No cough or fever.
[2020-04-02] MEDS ORDERED: Cephalexin 500mg cap ORAL ONE (03:30)
[2020-04-02] MEDS ORDERED: HYDROcodone/Acetamin 5/325 tab ORAL ONE (03:30)
[2020-04-02] MEDS ORDERED: Bactrim-DS 1 tab ORAL ONE (03:30)
--- NOTE | 2020-04-02 03:30 | NUR ---
ED Nurse Note: ERMD bedside for I&D of abscess. Female RN cdl flatbed truck driver present.
--- NOTE | 2020-04-02 03:30 | NUR ---
ED Nurse Note: Pt states she is not driving and she has someone to take her home. Will administer pain med as ordered.
[2020-04-02] MEDS: Lidocaine 1% Plain 30 ml INJ ONE ×2 (03:35→04:03)
--- NOTE | 2020-04-02 03:35 | NUR ---
ED Nurse Note: Pt notes instant decrease in pain and pressure after abscess was drained.
[2020-04-02] MEDS ORDERED: CEPHALEXIN500 MG ORAL (03:37)
[2020-04-02] MEDS ORDERED: NORCO 5-325 TA1 EAC1 ORAL (03:37)
[2020-04-02] MEDS ORDERED: BACTRIM DS TAB1 EAC1 ORAL (03:37)
[2020-04-02 03:40] VITALS: BP 120/78
--- NOTE | 2020-04-02 03:40 | NUR ---
ER DISCHARGE NOTE: Patient is cleared to be discharged per ERMD, pt is aox4, on room air, with stable vital signs. pt was given dc and prescription instructions, pt was able to verbalize understanding, pt id band removed. pt is able to ambulate with steady gait. pt took all belongings and RN witnessed pt get into passenger seat of pt friend's car.
--- NOTE | 2020-04-02 04:16 | Emergency Room Report ---
History of Present Illness General Chief Complaint: Skin Rash/Abscess Source: Patient Present Illness HPI 29-year-old female presents for pain and swelling to the right thigh x2 days. Pain is dull, 10 out of 10, nonradiating. Notes difficulty with walking because of the pain and swelling. Denies fevers or chills. No other aggravating relieving factors. Denies any other associated symptoms Allergies: Coded Allergies: No Known Allergies (Unverified , 10/20/18) COVID-19 Screening Contact w/high risk pt: No Experienced COVID-19 symptoms?: No COVID-19 Testing performed ENGINE CLEANER: No Patient History Past Medical History: asthma Past Surgical History: none Pertinent Family History: none Social History: Denies: smoking, alcohol use, drug use Last Menstrual Period: 03/1020 Now: No : 2 Para: 1 Immunizations: UTD Reviewed Nursing Documentation: PMH: Agreed; PSxH: Agreed Nursing Documentation-PMH Past Medical History: No History, Except For Hx Asthma: Yes Review of Systems All Other Systems: negative except mentioned in HPI Physical Exam Vital Signs Date Time Temp Pulse Resp B/P (MAP) Pulse Ox O2 Delivery O2 Flow Rate FiO2 04/02/20 03:04 98.8 110 18 113/80 (91) 96 Room Air Sp02 EP Interpretation: reviewed, normal General Appearance: no apparent distress, alert, GCS 15, non-toxic Head: normocephalic Eyes: bilateral eye normal inspection, bilateral eye PERRL ENT: normal ENT inspection Neck: normal inspection Respiratory: normal inspection Cardiovascular #1: normal inspection Gastrointestinal: normal bowel sounds, non tender, soft, non-distended, no guarding, no rebound Rectal: deferred Genitourinary: deferred - greens laborer present Musculoskeletal: normal inspection Neurologic: alert, motor strength/tone normal, oriented x3, sensory intact, responsive, speech normal Psychiatric: normal inspection Skin: other - abscess R inner thigh + fluctuance. no surrounding erythema/ induratino Lymphatic: normal inspection Procedures Incision and Drainage Incision and Drainage : Consent: Verbal Blade Size: 11 I & D Procedure: betadine prep, sterile drapes applied, sterile dressing applied Wound Location: lower extremity - R inner thigh Wound's Depth, Shape: other - abscess Wound Explored: purulent discharge expressed Anesthesia: 1% Lidocaine Splint Applied?: No Sling Applied?: No Patient Tolerated: Well Complications: None Medical Decision Making Diagnostic Impression: Primary Impression: Abscess ER Course Hospital Course 29 yo F presents abscess R thigh Clinical course Patient placed on stretcher. After initial history and physical I cleaned area. female greens laborer present. anesthesia with lidocaine. abscess drained using scalpel. forceps used to break up loculations. purulent discharge expressed. patient tolerated procedure without complications Given pain meds. Given antibiotics. I discussed findings with patient. dressing applied. Safe for discharge close outpatient follow-up. I will provide referrals Diagnosis - abscess Stable and discharged to home with prescription for [place], bactrim, Keflex. wound Care instructions given. Followup with PMD. Return to ED if any signs of infection develop Last Vital Signs Date Time Temp Pulse Resp B/P (MAP) Pulse Ox O2 Delivery O2 Flow Rate FiO2 04/02/20 03:40 98.6 98 18 120/78 99 Room Air Status: improved Disposition: HOME, SELF-CARE Condition: Stable Scripts Trimethoprim/Sulfamethoxazole 160/800* (BACTRIM DS TABLET*) 1 Each Tablet 1 TAB ORAL Q12H, #14 TAB 0 Refills Prov: Koby Camacho MD 04/02/20 Cephalexin* (KEFLEX*) 500 Mg Capsule 500 MG ORAL EVERY 6 HOURS for 7 Days, CAP Prov: Koby Camacho MD 04/02/20 Hydrocodone Bit/Acetaminophen 5-325* (NORCO 5-325 TABLET*) 1 Each Tablet 1 TAB ORAL Q6H PRN for FOR PAIN, #12 TAB 0 Refills Prov: Koby Camacho MD 04/02/20 Ref[facility]: [facility] ([facility]P) [facility] Patient Instructions: Abscess Koby Camacho MD Apr 02, 2020 04:16
== END 2020-04-02 03:40 | disposition home or self-care (01) ==
LOC: EMR 03:40
DX: L02.415 Cutaneous abscess of right lower limb (principal)
CPT/HCPCS: 10060; J2001; Z7502; 99283